=== PATIENT | female | born 1960 | race Caucasian/White ===

== ENCOUNTER 2025-01-08 16:14 | Emergency (ER) | payer MEDICAID, OTHER ==
[~2025-01-08] VITALS: Ht 170.2 cm; Wt 77.0 kg
--- NOTE | 2025-01-08 16:37 | ED.PDOC ---
History of Present Illness(SKN HPI Comments 64 y/o F, BIBA, presents to the ED for CC of right sided facial pain. EMS reports, patient is coming from home where she c/o right sided facial pain with associated right cheek swelling x2days, d/t previous abscess. Patient relays, that she suffered a trip and fall [id number] ago causing her to land on her face which resulted in facial abscess. Patient relays, that she has been unable to eat d/t pain. Patient denies oral discharge, nausea, vomiting, or fever. 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 TECHNICIAN Hx Family History Family History: Unknown Social History Smoker: Non-Smoker Alcohol: Denies ETOH Use Drugs: Denies Drug Use Lives In: Home Constitutional: denies: chills, diaphoresis, fatigue, fever, malaise, sweats, weakness, others EENTM: denies: blurred vision, double vision, ear bleeding, ear discharge, ear drainage, ear pain, ear ringing, eye pain, eye redness, hearing loss, mouth pain, mouth swelling, nasal discharge, nose bleeding, nose congestion, nose bebe n, photophobia, tearing, throat pain, throat swelling, voice changes, others Respiratory: denies: cough, hemoptysis, orthopnea, SOB at rest, shortness of breath, SOB with excertion, stridor, wheezing, others Cardiovascular: denies: chest pain, dizzy spells, diaphoresis, Dyspnea on exertion, edema, irregular heart beat, left arm pain, lightheadedness, palpitations, PND, syncope, others Gastrointestinal: denies: abdomen distended, abdominal pain, blood streaked bowels, constipated, diarrhea, dysphagia, difficulty swallowing, hematemesis, melena, nausea, poor appetite, poor fluid intake, rectal bleeding, rectal pain, vomiting, others Genitourinary: denies: abnormal vagina bleeding, burning, dyspareunia, dysuria, flank pain, frequency, hematuria, incontinence, pain, , vagina discharge, urgency, others Neurological: denies: dizziness, fainting, headache, left sided numbness, left sided weakness, numbness, paresthesia, pre-existing deficit, right sided numbness, right sided weakness, seizure, speech problems, tingling, tremors, weakness, others Musculoskeletal: denies: back pain, gout, joint pain, joint swelling, muscle pain, muscle stiffness, neck pain, others Integumetry: denies: bruises, change in color, change in hair/nails, dryness, laceration, lesions, lumps, rash, wounds, others Allergic/Immunocompromised: reports: others (right cheek pain); denies: Difficulty Healing, Frequent Infections, Hives, Itching Hematologic/Lymphatic: denies: anemia, blood clots, easy bleeding, easy bruising, swollen glands, others Endocrine: denies: excessive hunger, excessive sweating, excessive thirst, excessive urination, flushing, intolerance to cold, intolerance to heat, unexplained weight gain, unexplained weight loss, others Psychiatric: denies: anxiety, bipolar disorder, depression, hopeless, panic disorder, schizophrenia, sleepless, suicidal, others All Other Systems: Reviewed and Negative Physical Exam General Appearance: No Apparent Distress, Normal HEENT: Normal ENT Inspection, Pharynx Normal, Other (right eye blindness, previous right sided deficit, no TMJ tenderness, right cheek swelling) Neck: Full Range of Motion, Non-Tender, Normal, Normal Inspection Respiratory: Chest Non-Tender, Lungs Clear, No Accessory Muscle Use, No Respiratory Distress, Normal Breath Sounds Cardiovascular: No Edema, No Murmur, No Gallop, Normal Peripheral Pulses, Regular Rate/Rhythm Breast Exam: Deferred Gastrointestinal: No Organomegaly, Non Tender, No Pulsatile Mass, Normal Bowel Sounds, Soft Genitalia: Deferred Pelvic: Deferred Rectal: Deferred Extremities: No calf tenderness, Normal capillary refill, Normal inspection, Normal range of motion, Non-tender, No pedal edema Musculoskeletal : Apperance: Normal Neurologic: Alert, hand cloth examiner II-XII nml as Tested, No Motor Deficits, Normal Affect, Normal Mood, No Sensory Deficits Cerebellar Function: Normal Reflexes: Normal Skin: Dry, Normal Color, Warm Lymphatic: No Adenopathy Was a procedure done? Was a procedure done?: No Differential Diagnosis (INTG) Differential Diagnosis: Cellulitis Differential Diagnosis: Abscess, Erysipelas X-Ray, Labs, Meds, VS Vital Signs Date Time Temp Pulse Resp B/P (MAP) Pulse Ox O2 Delivery O2 Flow Rate FiO2 01/08/25 20:00 98.9 108 17 134/98 (110) 99 98.9 01/08/25 19:37 101 16 138/72 01/08/25 19:07 72 19 118/51 01/08/25 18:00 72 17 118/51 (73) 99 01/08/25 17:46 93 16 99 Room Air* 0 21 01/08/25 17:06 99.9 116 22 136/75 (95) 97 99.9 01/08/25 17:00 98.7 93 17 143/92 (109) 99 98.7 Lab Test 01/08/25 17:22 Range/Units White Blood Count 9.9 4.4-10.8 10^3/uL Red Blood Count 5.04 4.0-5.20 10^6/uL Hemoglobin 15.0 12.2-16.2 g/dL Hematocrit 44.9 36.0-46.0 % Mean Corpuscular Volume 89.1 80.0-100.0 fL Mean Corpuscular Hemoglobin 29.8 28.0-32.0 pg Mean Corpuscular Hemoglobin Concent 33.4 32.0-36.0 g/dL Red Cell Distribution Width 14.3 11.8-14.3 % Platelet Count 294 140-450 10^3/uL Mean Platelet Volume 7.0 6.9-10.8 fL Neutrophils (%) (Auto) 73.0 37.0-80.0 % Lymphocytes (%) (Auto) 13.8 10.0-50.0 % Monocytes (%) (Auto) 12.5 H 0.0-12.0 % Eosinophils (%) (Auto) 0.4 0.0-7.0 % Basophils (%) (Auto) 0.3 0.0-2.0 % Neutrophils # (Auto) 7.2 1.6-8.6 10 ^3/uL Lymphocytes # (Auto) 1.4 0.4-5.4 10 ^3/uL Monocytes # (Auto) 1.2 0-1.3 10 ^3/uL Eosinophils # (Auto) 0 0-0.8 10 ^3/uL Basophils # (Auto) 0 0-0.2 10 ^3/uL Nucleated Red Blood Cells 0.1 % Sodium Level 140 136-145 mmol/L Potassium Level 4.1 3.5-5.1 mmol/L Chloride Level 105 98-107 mmol/L Carbon Dioxide Level 27 20-31 mmol/L Anion Gap 8 5-15 Blood Urea Nitrogen 8 L 9-23 mg/dL Creatinine 1.06 H 0.550-1.02 mg/dL Glomerular Filtration Rate Calc 59 >90 mL/min BUN/Creatinine Ratio 7.5 L 10.0-20.0 Serum Glucose 88 74-106 mg/dL Calcium Level 10.1 8.7-10.4 mg/dL Current Medications Medications (Trade) Dose Ordered Sig/Julius Route Start Time Stop Time Status Last Admin Ondansetron HCl (Zofran) 4 mg ONCE ONCE IV 01/08/25 18:45 01/08/25 18:46 DC 01/08/25 19:06 Morphine Sulfate 4 mg ONCE ONCE IV 01/08/25 18:45 01/08/25 18:46 DC 01/08/25 19:07 X-Ray, Labs, Meds, VS Comment Imaging: X-rays and CT scans were reviewed and interpreted by this provider, imaging shows no fractures and no pathological disease. Pending radiology review. Laboratory: Labs reviewed and interpreted by this provider. No significant abnormalities noted. Patient has prior medical visits reviewed. Med reconciliation performed Vital signs reviewed Time of 1ST Reevaluation: 16:50 Reevaluation 1ST: Unchanged Patient Education/Counseling: Diagnosis, Treatment, Need For Follow Up (Follow up with PCP next available appointment. Return to the emergency department if symptoms worsen over the next 24-48 hours.) Family Education/Counseling: No Family Present SEPSIS Sepsis Screen Physician Orders Maxillofacial With (01/08/25 16:26) Vital Signs Date Time Temp Pulse Resp B/P (MAP) Pulse Ox O2 Delivery O2 Flow Rate FiO2 01/08/25 20:00 98.9 108 17 134/98 (110) 99 98.9 01/08/25 19:37 101 16 138/72 01/08/25 19:07 72 19 118/51 01/08/25 18:00 72 17 118/51 (73) 99 01/08/25 17:46 93 16 99 Room Air* 0 21 01/08/25 17:06 99.9 116 22 136/75 (95) 97 99.9 7/2/25 17:00 98.7 93 17 143/92 (109) 99 98.7 Laboratory Tests Test 01/08/25 17:22 White Blood Count 9.9 10^3/uL (4.4-10.8) Medications Medications Dose Ordered Sig/Julius Route Start Time Stop Time Status Last Admin Dose Admin Morphine Sulfate 4 mg ONCE ONCE IV 01/08/25 18:45 01/08/25 18:46 DC 01/08/25 19:07 Ondansetron HCl 4 mg ONCE ONCE IV 01/08/25 18:45 01/08/25 18:46 DC 01/08/25 19:06 Departure 1 Departure Time of Disposition: 21:14 Impression: Primary Impression: Facial cellulitis Disposition: 01 HOME / SELF CARE / HOMELESS Condition: Fair e-Prescriptions Ibuprofen Micronized (Ibuprofen) 800 Mg Tab 800 MG PO TID PRN, #30 TAB Prov: GRETA GARCIAS 01/08/25 Amoxicillin & Pot Clavulanate (AUGMENTIN TABLET) 875 Mg Tb 875 MG PO BID for 7 Days, #14 TAB Prov: GRETA GARCIAS 01/08/25 Discharged With: Self Critical Care Note Critical Care Time?: No Stability Stability form required: No Heart Score Heart Score: Heart Score Response (Comments) Value History N/A 0 EKG N/A 0 Age N/A 0 Risk Factors N/A 0 Troponin N/A 0 Total 0 I personally scribed for GRETA GARCIAS ([email or web address]) on 01/08/25 at 16:37. Electronically submitted by Farheen Matias ([email or web address]). GRETA GARCIAS Jan 08, 2025 16:37
[2025-01-08 17:45] LABS: Chloride 105 mmol/L (98-107); Potassium 4.1 mmol/L (3.5-5.1); Sodium 140 mmol/L (136-145)
[2025-01-08 17:46] VITALS: PULSE 93; RESP 16; O2SAT 99
[2025-01-08 17:46] LABS: Anion Gap 8 (5-15); Calcium 10.1 mg/dL (8.7-10.4); Carbon Dioxide 27 mmol/L (20-31)
[2025-01-08 17:47] LABS: Hematocrit 44.9 % (36.0-46.0); Hemoglobin 15.0 g/dL (12.2-16.2); Mean Corpuscular Hemoglobin 29.8 pg (28.0-32.0); Mean Corpuscular Volume 89.1 fL (80.0-100.0); Nucleated Red Blood Cells % 0.1 %
[2025-01-08 17:51] LABS: BUN/Creatinine Ratio 7.5 (10.0-20.0); Glucose 88 mg/dL (74-106)
[2025-01-08 18:06] LABS: Blood Urea Nitrogen 8 mg/dL (9-23)
[2025-01-08] MEDS: ONDANSETRON HCL 4 MG/2 ML VIAL IV ONE (19:06)
[2025-01-08] MEDS: MORPHINE SULFATE 4 MG/ML SYR/VIAL IV ONE (19:07)
[2025-01-08] MEDS: IOHEXOL 300 MG/ML 100ML BOTTLE IJ ONE (20:20)
--- NOTE | 2025-01-08 20:53 | DVH ---
EXAM: CT MAXILLOFACIAL WITH INDICATION: FACIAL SWELLING EXAM DATE: 01/08/2025 08:02 PM COMPARISON: None TECHNIQUE: Multiple axial CT images of the maxilla and face were obtained using bone algorithm. Axial and coronal reformatting was done. Bone and soft tissue windows were reviewed. Radiation Dose Information: CT Dose: CTDI volume is 66.78 mGy. Dose-length product is 1376.58 mGy*cm Findings: There is no evidence of an acute fracture or traumatic subluxations. No evidence of lytic, blastic, or osseous destructive lesions. Complete opacification of the left maxillary sinus. The remaining paranasal sinuses, middle ear cavit ies, and mastoid air cells are normally aerated. The left globe and orbit are within normal limits. R ight phthisis bulbi. The nasal septum, nasal cavity, nasopharynx, and oropharynx are grossly unremarkable. Mild right periorbital and right buccal soft tissue edema. The paraspinal and neck soft tissues appea r within normal limits. No focal fluid collections or abnormal enhancement. Impression: 1. No acute osseous abnormalities, focal fluid collections, or abnormal enhancement. 2. Mild right periorbital and right buccal soft tissue edema. 3. Left maxillary sinus disease.
[2025-01-08] MEDS ORDERED: IBUP-1455 PO (21:17)
[2025-01-08] MEDS ORDERED: AUG875T PO (21:17)
[2025-01-08 21:37] VITALS: BP 133/79; PULSE 97; RESP 17; TEMP 98.9; O2SAT 99
== END 2025-01-08 21:45 | disposition home or self-care (01) ==
LOC: EDBD 16:14 → ER 16:14
DX: L03.211 Cellulitis of face (principal); W01.0XXA Fall on same level from slipping, tripping and stumbling without subsequent striking against object, initial encounter; Y93.89 Activity, other specified; Y92.89 Other specified places as the place of occurrence of the external cause; Y99.8 Other external cause status
CPT/HCPCS: 36415; 70487; 80048; 85025; 96374; 96375; 99285; J2270; J2405; Q9967